=== PATIENT | female | born 1950 | race African-American/Black ===

== ENCOUNTER 2017-04-07 15:38 | Observation (INO) | payer OTHER ==
[~2017-04-07] VITALS: Ht 157.5 cm; Wt 67.3 kg
--- NOTE | ~2017-04-07 | EKG ---
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 : 1950 Requested By: Jan Mota Order Number: [id number] MD: Richard Andrews Measurements Intervals [place] Rate: 71 P: 71 AL: 172 QRS: -4 QRSD: 91 T: -13 QT: 429 QTc: 467 Interpretive Statements Sinus rhythm Probable left atrial enlargement LVH with secondary repolarization abnormality Compared to ECG 04/12/2016 18:05:28 Early repolarization now present ST (T wave) deviation no longer present Electronically Signed On 04-09-2017 22:11:10 CDT by Richard Andrews [email or web address] <ELECTRONICALLY SIGNED> By: Richard Andrews MD 04/09/17 2211 1607 1607 Richard Andrews MD /EPI
--- NOTE | ~2017-04-07 | EKG ---
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: pedro : 1950 Requested By: Jan Mota Order Number: [id number] MD: Richard Andrews Measurements Intervals [place] Rate: 64 P: 55 NC: 157 QRS: -8 QRSD: 98 T: -11 QT: 434 QTc: 448 Interpretive Statements Sinus rhythm Left atrial enlargement Left ventricular hypertrophy Nonspecific T abnormalities, inferior leads Compared to ECG 04/12/2016 18:05:28 Atrial abnormality now present T-wave abnormality now present ST (T wave) deviation no longer present Electronically Signed On 04-09-2017 22:10:01 CDT by Richard Andrews [email or web address] <ELECTRONICALLY SIGNED> By: Richard Andrews MD 04/09/17 2210 1542 1542 Richard Andrews MD /EPI
--- NOTE | ~2017-04-07 | EKG ---
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: AMY : 1950 Requested By: Varun Harkins Order Number: [id number] MD: Richard Andrews Measurements Intervals [place] Rate: 64 P: 64 AR: 173 QRS: -9 QRSD: 97 T: -34 QT: 417 QTc: 431 Interpretive Statements Sinus rhythm Probable left atrial enlargement Left ventricular hypertrophy Nonspecific T abnormalities, inferior leads Compared to ECG 04/12/2016 18:05:28 T-wave abnormality now present ST (T wave) deviation no longer present Electronically Signed On 04-09-2017 22:14:59 CDT by Richard Andrews [email or web address] <ELECTRONICALLY SIGNED> By: Richard Andrews MD 04/09/17 2214 0834 0834 Richard Andrews MD /EPI
[~2017-04-07 15:38] MED LIST: ACETAMINOPHEN325 M1 PO; ALBUTEROL2.5 MG/0.1 INH; ALDACTONE25 MG PO; ASPIR 8181 MG PO; ASPIR-TRIN325 MG PO; ATORVASTATIN CA40 MG PO; CARVEDILOL12.5 MG PO; CARVEDILOL25 MG PO; CLARITIN10 MG PO; COLACE100 MG PO; COUMADIN 3 MG TA3 M1 PO; COUMADIN 4 MG TA4 M1 PO; COUMADIN 5 MG TA5 M1 PO; FLAGYL500 MG PO; FLONASE 0.05%50 MCG NASAL; FOLIC ACID1 MG PO; HYDROCERIN CREA1 JAR TOP; HYDROCHLOROTHIA25 M2 PO; ISOSORBIDE MONO30 M1 PO; KEFLEX500 MG PO; LISINOPRIL10 MG PO; LISINOPRIL20 MG PO; LISINOPRIL40 MG PO; LORTAB 5-500 T1 EAC1 PO; MAG-AL PLUS SUS30 ML PO; MILK OF MA2400 MG/10 PO; MIRALAX17 GM PO; MUCINEX TA600 MG/TA2 PO; NEURONTIN 300300 M1 PO; NICOTINE TRANSD14 M1 TD; NITROGLYCERIN0.4 MG SUBLING; NOHOMEMEDICATIONS; NORCO 5-325 TA1 EACH PO; PROTONIX40 M1 PO; PYRIDIUM100 M1 PO; SENNA8.6 MG PO; TUMS PO; TYLENOL EXTRA500 MG PO; TYLENOL325 MG PO; VOLTAREN GEL 1100 G2 TOP
[2017-04-07 15:48] VITALS: BP 175/93
[2017-04-07 16:08] LABS: ABSOLUTE NEUTROPHILS 4.1 thou/uL (1.4-8.2); EOSINOPHILS 1.6 % (0.0-3.0); HEMATOCRIT 38.2 % (37.0-47.0); HEMOGLOBIN 11.9 gm/dL (12.0-15.0); LYMPHOCYTES 37.6 % (24.0-44.0); MCH 21.9 pg (26.0-34.0); MCHC 31.2 g/dL (28.0-37.0); MCV 70.3 fL (80.0-100.0); MONOCYTES 8.9 % (1.0-8.0); PLATELET COUNT 248 thou/uL (150-400); POLYS 50.9 % (36.0-66.0); RBC 5.44 mil/uL (4.20-5.00); RDW 16.5 % (10.5-14.5)
[2017-04-07 16:23] LABS: ANION GAP 9 mmol/L (7-16); BUN 24 mg/dL (7-18); CALCIUM 9.6 mg/dL (8.5-10.1); CHLORIDE 107 mmol/L (98-107); CO2 25 mmol/L (21-32); CREATININE 1.3 mg/dL (0.6-1.0); GLUCOSE 133 mg/dL (74-106); MANUAL DIFF NO; SODIUM 141 mmol/L (136-145)
[2017-04-07 16:25] LABS: APTT 35.2 Seconds (24.5-32.8); INR 2.5; PROTIME 26.1 Seconds (9.3-11.4)
[2017-04-07 16:30] LABS: ALBUMIN 3.8 g/dL (3.4-5.0); ALKALINE PHOSPHATASE 79 U/L (46-116); MAGNESIUM 1.8 mg/dL (1.8-2.4); SGOT 28 U/L (15-37); SGPT 22 U/L (30-65); TOTAL BILIRUBIN 0.4 mg/dL (<0.1-1.0); TOTAL PROTEIN 7.8 g/dL (6.4-8.2); TROPONIN-I < 0.04 ng/mL (<0.04-0.07)
[2017-04-07 18:22] VITALS: BP 179/78
[2017-04-07 19:30] VITALS: BP 185/82
[2017-04-07] MEDS ORDERED: COUMADIN 2.5MG2.5 M1 PO (22:39)
[2017-04-08] VITALS: BP 135/72
[2017-04-08 04:24] VITALS: BP 128/77
[2017-04-08 05:57] LABS: CHOLESTEROL 157 mg/dL (<200); HDL CHOLESTEROL 79 mg/dL (>40); LDL CHOLESTEROL 61 mg/dL (<100); SERUM ASSESSMENT Clear; TRIGLYCERIDE 88 mg/dL (<150); TROPONIN-I < 0.04 ng/mL (<0.04-0.07); VLDL 18 mg/dL (<40)
[2017-04-08 08:00] VITALS: BP 148/75
== END 2017-04-08 14:53 ==
LOC: ER 15:38 → EROBS 16:46 → 3N 18:24
PROVIDERS: Emergency Medicine; Internal Medicine Cardiovascular Disease
DX: R07.9 Chest pain, unspecified (principal); I63.9 Cerebral infarction, unspecified; I11.0 Hypertensive heart disease with heart failure; I50.9 Heart failure, unspecified; I48.91 Unspecified atrial fibrillation; D64.9 Anemia, unspecified; Z87.891 Personal history of nicotine dependence

== ENCOUNTER 2019-01-02 14:13 | Inpatient (IN) | payer OTHER ==
[~2019-01-02] VITALS: Ht 157.5 cm; Wt 76.9 kg
--- NOTE | ~2019-01-02 | HC ---
[facility] [place] [address] CONSULTATION Name: UNA RILEY Room #: 211-P ADM IN M.R.#: [id number] Admission: 01/02/19 ������������������ Attend Phys: Noel Atkinson MD Discharge: ������������������ Date of : 50 Report #: [id number] THIS REPORT FOR: //name// CC: Noel Motta DATE OF SERVICE: 01/03/2019 PRIMARY CARE PHYSICIAN: Dr. Tessa Carcamo. SENIOR PRODUCT CONSULTANT: Varun Harkins MD [facility]. CHIEF COMPLAINT: Chest pain. HISTORY OF PRESENT ILLNESS: The patient is a 68-year-old female with a history of ischemic cardiomyopathy. She lives in a longterm following a prior stroke. She had been having chest discomfort. She came to the Emergency Room via ambulance. Initial ECG demonstrated sinus rhythm with diffuse ST segment depression, but when compared to prior 2017 study this was noted to be chronic. She was admitted though because of her chest pain symptoms with a history of heart disease. Overnight, she has had negative troponins x 3 sets and this morning is asymptomatic. She is quite hypertensive when she presented, she did require some nitroglycerin. Apparently, she was in the hospital at [facility] with a potential infection and we have no records. PAST MEDICAL HISTORY: [place] in [place]. Apparently, she presented late, no revascularization was possible, she had a defibrillator placed, it is a [employer] device. She has a history of stroke, which occurred approximately one year later, she has high blood pressure. She is a tobacco user prior. She has an EF in the 30-35% range. FPC medications include Aldactone 25 mg daily, Coreg 25 mg p.o. b.i.d., Zestril 40 mg daily, warfarin 2.5 mg daily, atorvastatin 40 mg daily. ALLERGIES: She has no known drug allergies. SOCIAL HISTORY: She is still actively smoking. REVIEW OF SYSTEMS: GASTROINTESTINAL: No nausea, vomiting, hematemesis or melena. GENITOURINARY: No dysuria. NEUROLOGIC: Denies new symptoms of numbness, weakness or slurred speech. HEMATOLOGIC: No anemia or bleeding disorders. [facility] [address] [place] [address] CONSULTATION Name: UNA RILEY Room #: 211-P [facility] IN .R.#: [id number] Admission: 01/02/19 ������������������ Attend Phys: Noel Atkinson MD Discharge: ������������������ Date of : 50 Report #: [id number] RENAL: No history of kidney failure. ENDOCRINE: She is not known to be a diabetic. CARDIOVASCULAR: Positive chest pain, positive dyspnea on exertion. No orthopnea, no ICD shocks. PHYSICAL EXAMINATION: VITAL SIGNS: Blood pressure today is 110/49, pulse is 61, temperature 36.7, O2 sat 96%. GENERAL: This is a thin -German female. She is in no apparent distress. HEENT: Eyes are intact. No facial asymmetry. NECK: Supple. No jugular venous distention, upstrokes normal. CARDIOVASCULAR: Regular, faint murmur. LUNGS: Clear to auscultation. ABDOMEN: Soft, nontender. EXTREMITIES: No peripheral edema. Chest x-ray revealed improved aeration from prior study. LABORATORY DATA: Hemoglobin is 11.6, white blood count 7.4. Sodium is 141, potassium 3.9, chloride 107, BUN is 20, creatinine is 1.4. Troponin I is 0.06 x 3 sets. IMPRESSION: 1. Ischemic cardiomyopathy. 2. Angina. 3. Coronary artery disease. 4. Prior cerebrovascular accident. 5. Status post ICD. At this point in time, she is ruled out for an acute myocardial infarction. We will evaluate her with a pharmacologic stress test. Her blood pressure was elevated, but it seems better controlled currently. She is anticoagulated, so a further coronary intervention is being planned, this will need to be held. She did mention though that they attempted to perform a PCI at the time of her initial myocardial infarct, but no coronary stent was placed. We will obtain her outpatient records. ��������������������������������������������� ���������������������������������������� By: ��������������������������������������������� 0830 2339 Gerardo Evans MD, FACC /nt
[~2019-01-02 14:13] MED LIST changes: +COUMADIN 2.5MG2.5 M1 PO
[2019-01-02 14:14] VITALS: BP 154/74
[2019-01-02 15:12] LABS: ABSOLUTE NEUTROPHILS 3.9 thou/uL (1.4-8.2); BASOPHILS 0.9 % (0.0-2.0); EOSINOPHILS 1.1 % (0.0-3.0); HEMOGLOBIN 12.5 gm/dL (12.0-15.0); LYMPHOCYTES 36.6 % (24.0-44.0); MCH 22.3 pg (26.0-34.0); MCHC 31.2 g/dL (28.0-37.0); MCV 71.5 fL (80.0-100.0); MONOCYTES 7.3 % (1.0-8.0); PLATELET COUNT 164 thou/uL (150-400); POLYS 54.1 % (36.0-66.0); RDW 15.7 % (10.5-14.5); WBC 7.2 thou/uL (4.0-11.0)
[2019-01-02 15:16] LABS: INR 1.9; PROTIME 20.1 Seconds (9.3-11.4)
[2019-01-02 15:27] LABS: ANION GAP 8 mmol/L (7-16); BUN 17 mg/dL (7-18); CALCIUM 8.9 mg/dL (8.5-10.1); CHLORIDE 112 mmol/L (98-107); CO2 23 mmol/L (21-32); CREATININE 1.1 mg/dL (0.6-1.0); GLUCOSE 147 mg/dL (74-106); POTASSIUM 3.8 mmol/L (3.5-5.1); SODIUM 143 mmol/L (136-145)
[2019-01-02 15:37] LABS: TROPONIN-I <0.06 ng/mL (<0.06)
[2019-01-02 15:52] LABS: HYPOCHROMASIA 1+; MICROCYTES 1+
[2019-01-02 15:53] LABS: BURR CELLS 1+
[2019-01-02 17:28] VITALS: BP 145/59
[2019-01-02] MEDS ORDERED: SPIRONOLACTONE25 M1 PO (17:46)
[2019-01-02] MEDS ORDERED: OMEPRAZOLE20 M2 PO (17:48)
[2019-01-02] MEDS ORDERED: FLONASE 0.05%50 MCG NASAL (17:54)
[2019-01-02] MEDS ORDERED: UNICOMPLEX M TA1 TA1 PO (17:56)
[2019-01-02] MEDS ORDERED: KEPPRA 500 MG500 M1 PO (17:57)
[2019-01-02] MEDS ORDERED: ONDANSETRON HCL4 M2 PO (18:06)
[2019-01-02] MEDS ORDERED: BENADRYL25 MG PO (18:07)
[2019-01-02 18:09] VITALS: BP 151/58
--- NOTE | 2019-01-02 18:19 | NUR ---
PT ARRIVED TO ROOM 211. NO PAIN/CHEST PAIN. PT SITTING ON SIDE OF BED WITH CALL LIGHT IN REACH. VSS. WILL CONTINUE TO MONITOR.
[2019-01-02 18:30] VITALS: BP 146/76
[2019-01-03 04:15] VITALS: BP 105/42
[2019-01-03 04:37] LABS: ANION GAP 8 mmol/L (7-16); BUN 20 mg/dL (7-18); CALCIUM 9.4 mg/dL (8.5-10.1); CHLORIDE 107 mmol/L (98-107); CO2 26 mmol/L (21-32); CREATININE 1.4 mg/dL (0.6-1.0); GLUCOSE 129 mg/dL (74-106); POTASSIUM 3.9 mmol/L (3.5-5.1); SODIUM 141 mmol/L (136-145); TROPONIN-I <0.06 ng/mL (<0.06)
[2019-01-03 04:52] VITALS: BP 110/49
[2019-01-03 05:13] LABS: HEMATOCRIT 37.6 % (37.0-47.0); HEMOGLOBIN 11.6 gm/dL (12.0-15.0); MCH 22.1 pg (26.0-34.0); MCV 71.4 fL (80.0-100.0); RBC 5.26 mil/uL (4.20-5.00); RDW 15.8 % (10.5-14.5); WBC 7.4 thou/uL (4.0-11.0)
--- NOTE | 2019-01-03 05:14 | NUR ---
ASSUMED PT CARE AT 1900. PT WAS A NEW ADMIT TO THE UNIT AT THIS TIME. VSS. PT A0X4. ADMISSION ASSESSMENTS AND MEDS GIVEN ARE CHARTED. PT RESTED ALL NIGHT. NO COMPLAINTS OF CHEST PAIN FOR ME. SHE GOT UP TO USE THE RESTROM TWICE, SHE IS QUITE UNSTEADY BUT MAKES IT WELL IN SHORT STEPS TO THE BEDSIDE COMMODE WITH ONE ASSIST. PT HAD GOOD URINE OUTPUT. SHE HAS BEEN NPO SINCE MIDNIGHT IN PREP FOR STRESS TEST THIS AM. PT IS STABLE WILL CONTINUE TO MONITOR.
[2019-01-03 07:40] VITALS: BP 120/64
--- NOTE | 2019-01-03 09:20 | EKG ---
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 : 1950 Requested By: Cam Gray Order Number: [id number] MD: Octavio Pate Measurements Intervals [place] Rate: 58 P: 60 MS: 155 QRS: -20 QRSD: 98 T: -45 QT: 455 QTc: 447 Interpretive Statements Sinus rhythm Atrial premature complex Poor R wave progression ST segment abnormality, consider digoxin effect Compared to ECG 04/08/2017 08:34:24 No significant change was found Electronically Signed On 01-03-2019 9:19:55 CDT by Octavio Pate [email or web address] ��������������������������������������������� <ELECTRONICALLY SIGNED> ���������������������������������������� By: Octavio Pate MD, [facility] ��������������������������������������������� 01/03/19 0919 1417 141 Octavio Pate MD, [facility] /EPI
[2019-01-03 11:45] VITALS: BP 174/55
--- NOTE | 2019-01-03 13:03 | NUR ---
patient admits with chest pain. She is ltc at [facility]. She has prev IA and CVA. She is A/Ox4. Plan return once stable. Casemgt following. Left son message.
--- NOTE | 2019-01-03 14:39 | NUR ---
PT. RESIDES AT [facility] FAXED CLINICAL UPDATE TO FACILITY SPOKE WITH HO IN ADM. SHE RECEIVED UPDATE. DCP TO FOLLOW.
[2019-01-03 16:00] VITALS: BP 146/60
[2019-01-03 19:51] VITALS: BP 137/70
--- NOTE | 2019-01-03 20:30 | NUR ---
SHIFT SUMMARY: NPO FOR PROCEDURE. ASSESSMENT COMPLETED AT SHIFT CHANGE. TO STRESS TEST AT 0850 PER WHEELCHAIR WITH TRANSPORT, RETURNED AT 1030. REPORT RECEIVED POST PROCEDURE. PLEASANT, COOPERATIVE, CHRONIC DISCOMFORT IN L SHOULDER/ARM, SR WITH INTERMITTENT BIGEMINAL PVC'S, ROOM AIR, RESP EVEN AND UNLABORED, VOIDS ADEQUATE AMOUNT. STRESS TEST REPORT READ BY DR. WATSON- BASED ON STRESS TEST RESULTS- PT JANUARY DISCHARGE. REPORT TO ONCOMING RN.
[2019-01-04 00:01] VITALS: BP 132/51
--- NOTE | 2019-01-04 04:09 | NUR ---
ASSUMED PT CARE AT 1900. VSS. PT A&0X4. PT RESTED WELL ALL NIGHT AROUND 0230 SHE COMPLAINED THAT HER IV SITE WAS BEGINING TO HURT, SO IV WAS TAKEN OUT, RIGHT ARM ELEVATED AND ICE WAS PLACED ON IT. PT IS STABLE, SR ON THE MONITOR, POSSIBLE D/C SOON.
[2019-01-04 04:46] VITALS: BP 116/60
[2019-01-04 08:14] VITALS: BP 135/63
[2019-01-04 12:27] VITALS: BP 156/81
--- NOTE | 2019-01-04 13:27 | NUR ---
PT. DISCHARGING TODAY BACK TO [facility] FAXED DC ORDERS/SUMMARY TO FACILITY AND SPOKE WITH HO IN ADM. SHE RECEIVED DC ORDERS AND ARRANGED WC VAN TRANSPORT FOR 1500 TODAY. LEFT [facility] [place] BOTH SONS LINETTE AND CARSON THAT PT. DISCHARGING TODAY AND TIME OF TRANSPORT. UNIT NOTIFIED AND CHART COPY PER US. RN TO CALL REPORT TO [phone].
--- NOTE | 2019-01-04 14:56 | NUR ---
PT DISCHARGING AT THIS TIME BACK TO SENDING FACILTIY. REPORT CALLED TO NURSE GALEANO. NO CHANGES REPORTED REGARDING PREVIOUS POC. PT ALERT AND ORIENTED X4. DENIES PAIN AND SOA. VSS. NO PIV PRESENT TO REMOVE. TELE BOX OFF. CHART COPY IN MEDICAL TRANSPORTATION PERSONNEL POSSESSION.
== END 2019-01-04 16:22 | DRG 206 ==
LOC: ER 14:13 → 2N 17:25 → EROBS 17:25 → 2N 18:09
PROVIDERS: Emergency Medicine; ADMIT Hospitalist
DX: M94.0 Chondrocostal junction syndrome [Tietze] (principal); I69.354 Hemiplegia and hemiparesis following cerebral infarction affecting left non-dominant side; E78.5 Hyperlipidemia, unspecified; I50.9 Heart failure, unspecified; I11.0 Hypertensive heart disease with heart failure; I25.5 Ischemic cardiomyopathy; I25.119 Atherosclerotic heart disease of native coronary artery with unspecified angina pectoris; Z79.899 Other long term (current) drug therapy; I25.2 Old myocardial infarction; Z95.0 Presence of cardiac pacemaker; Z87.891 Personal history of nicotine dependence; Z79.01 Long term (current) use of anticoagulants
CPT/HCPCS: 10081

== ENCOUNTER 2020-08-14 16:41 | Inpatient (IN) | payer OTHER ==
[~2020-08-14] VITALS: Ht 157.5 cm; Wt 74.4 kg
[~2020-08-14 16:41] MED LIST changes: +BENADRYL25 MG PO; +KEPPRA 500 MG500 M1 PO; +OMEPRAZOLE20 M2 PO; +ONDANSETRON HCL4 M2 PO; +SPIRONOLACTONE25 M1 PO; +UNICOMPLEX M TA1 TA1 PO
[2020-08-14 16:42] VITALS: BP 149/70
[2020-08-14 17:07] LABS: ABSOLUTE NEUTROPHILS 4.3 thou/uL (1.4-8.2); BASOPHILS 0.7 % (0.0-2.0); EOSINOPHILS 1.5 % (0.0-3.0); HEMATOCRIT 33.5 % (37.0-47.0); HEMOGLOBIN 10.5 gm/dL (12.0-15.0); LYMPHOCYTES 36.7 % (24.0-44.0); MCH 22.9 pg (26.0-34.0); MCHC 31.3 g/dL (28.0-37.0); MCV 73.1 fL (80.0-100.0); MONOCYTES 9.4 % (1.0-8.0); PLATELET COUNT 203 thou/uL (150-400); POLYS 51.7 % (36.0-66.0); RBC 4.59 mil/uL (4.20-5.00); RDW 15.8 % (10.5-14.5); WBC 8.3 thou/uL (4.0-11.0)
[2020-08-14 17:12] LABS: ANION GAP 10 mmol/L (7-16); BUN 20 mg/dL (7-18); CALCIUM 9.8 mg/dL (8.5-10.1); CHLORIDE 106 mmol/L (98-107); CO2 26 mmol/L (21-32); CREATININE 1.4 mg/dL (0.6-1.0); GLUCOSE 178 mg/dL (74-106); POTASSIUM 3.5 mmol/L (3.5-5.1); SODIUM 142 mmol/L (136-145)
[2020-08-14 17:19] LABS: ALBUMIN 3.7 g/dL (3.4-5.0); SGOT 15 U/L (15-37); SGPT 14 U/L (30-65); TOTAL BILIRUBIN 0.2 mg/dL (0.2-1.0); TOTAL PROTEIN 7.3 g/dL (6.4-8.2)
[2020-08-14 17:57] LABS: TROPONIN-I <0.06 ng/mL (<0.06)
[2020-08-14 18:06] LABS: HYPOCHROMASIA 1+; MICROCYTES 1+
[2020-08-14 18:25] VITALS: BP 149/70
[2020-08-14] MEDS ORDERED: BIOFREEZE118 ML TOP (19:10)
[2020-08-14] MEDS ORDERED: NEURONTIN 300M300 M2 PO (19:12)
[2020-08-14] MEDS ORDERED: ISOSORBIDE MONO30 M1 PO (19:14)
[2020-08-14] MEDS ORDERED: KEPPRA XR500 MG PO (19:15)
[2020-08-14] MEDS ORDERED: METFORMIN HCL500 MG PO (19:16)
[2020-08-14] MEDS ORDERED: MYLANTA GAS MIN42 MG PO (19:18)
[2020-08-14] MEDS ORDERED: PROTONIX40 M2 PO (19:19)
[2020-08-14] MEDS ORDERED: TRAMADOL 50 MG50 MG PO (19:23)
[2020-08-14] MEDS ORDERED: VITAMIN C500 M2 PO (19:24)
[2020-08-14] MEDS ORDERED: ZINC SULFATE220 MG PO (19:25)
[2020-08-14] MEDS ORDERED: XARELTO20 MG PO (19:25)
[2020-08-14] MEDS ORDERED: ZOFRAN ODT4 MG PO (19:26)
--- NOTE | 2020-08-14 19:27 | NUR ---
[employer] STATES PT HAS A SINGLE LEAD ICD AND THATS IT IS SET UP FOR SHOCK FOR SHOCK BOX. HE STATES INTERPRETATION OF PACEMAKER WILL REVEAL NOTHING.
[2020-08-14 19:37] VITALS: BP 163/74
[2020-08-14 19:58] VITALS: BP 122/60
[2020-08-14 20:14] VITALS: BP 139/70
--- NOTE | 2020-08-15 06:16 | NUR ---
VSS-AFEBRILE. NO C/O CHEST PAIN OVERNIGHT. C/O CHRONIC BACK PAIN THAT IS PARTIALLY RELIEVED WITH PO PAIN MEDICATION. NO DIFFICULTY VOIDING, CLEAR, YELLOW URINE. SR-HAS INDWELLING AICD. REMAINS ON ROOM AIR. FALL PRECAUTIONS IN PLACE.
[2020-08-15 06:24] LABS: ALBUMIN 3.7 g/dL (3.4-5.0); ANION GAP 10 mmol/L (7-16); BUN 21 mg/dL (7-18); CALCIUM 9.7 mg/dL (8.5-10.1); CHLORIDE 105 mmol/L (98-107); CO2 28 mmol/L (21-32); CREATININE 1.7 mg/dL (0.6-1.0); GLUCOSE 104 mg/dL (74-106); POTASSIUM 3.6 mmol/L (3.5-5.1); SODIUM 143 mmol/L (136-145); TROPONIN-I <0.06 ng/mL (<0.06)
[2020-08-15 07:20] VITALS: BP 114/62
[2020-08-15] MEDS ORDERED: LIDODERM1 EACH TRANSDERM (10:03)
--- NOTE | 2020-08-15 10:29 | NUR ---
Received awake on bed. Due medications given as prescribed, able to swallow meds w/o difficulty. On room air. Vital signs stable. A+Ox4. with left sided weakness; assisted in ADLs. On telemetry; no complains and signs of chest pain, crushing sensation and heaviness. On heart healthy diet- tolerating well; no nausea, no vomiting and no abdominal pain noted. Continent of bowel and bladder, able to use bedpan. With SL at R hand- intact and flushing well; dressing C/D/I. Falls bundle in place. Possible discharge today. No complains of pain made during assessment. To continue monitoring patient. Pt seen and examined by Dr Smith this AM, discharge orders made- CM to be informed.
[2020-08-15 15:30] VITALS: BP 125/52
[2020-08-15 16:26] VITALS: BP 114/62
--- NOTE | 2020-08-17 07:06 | EKG ---
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 : 1950 Requested By: Kingsley Diggs Order Number: [id number] MD: Sp Quikc Measurements Intervals [place] Rate: 68 P: 52 FL: 170 QRS: -16 QRSD: 104 T: -27 QT: 386 QTc: 411 Interpretive Statements Sinus rhythm Ventricular premature complex Abnormal R-wave progression, late transition LVH with secondary repolarization abnormality Compared to ECG 01/02/2019 14:17:47 Ventricular premature complex(es) now present Left ventricular hypertrophy now present Early repolarization now present Atrial premature complex(es) no longer present Poor R-wave progression no longer present Electronically Signed On 08-17-2020 7:05:59 FELT CEMENTER by Sp Quick [email or web address] <ELECTRONICALLY SIGNED> By: Sp Quick MD, [facility] 08/17/20 0705 44 44 Sp Quick MD, [facility] /EPI
== END 2020-08-15 17:55 | DRG 205 ==
LOC: ER 16:41 → EROBS 19:36 → 4W 19:42
PROVIDERS: Emergency Medicine; ADMIT Hospitalist; ATTEND Hospitalist
DX: M94.0 Chondrocostal junction syndrome [Tietze] (principal); N17.0 Acute kidney failure with tubular necrosis; I42.9 Cardiomyopathy, unspecified; I69.354 Hemiplegia and hemiparesis following cerebral infarction affecting left non-dominant side; I25.10 Atherosclerotic heart disease of native coronary artery without angina pectoris; E78.5 Hyperlipidemia, unspecified; I50.9 Heart failure, unspecified; I11.0 Hypertensive heart disease with heart failure; Z79.899 Other long term (current) drug therapy; I25.2 Old myocardial infarction; Z95.810 Presence of automatic (implantable) cardiac defibrillator; Z87.891 Personal history of nicotine dependence
CPT/HCPCS: 10045

== ENCOUNTER 2021-04-19 12:28 | Emergency (ER) | payer OTHER ==
[~2021-04-19] VITALS: Ht 157.5 cm; Wt 74.6 kg
[~2021-04-19 12:28] MED LIST changes: +BIOFREEZE118 ML TOP; +KEPPRA XR500 MG PO; +LIDODERM1 EACH TRANSDERM; +METFORMIN HCL500 MG PO; +MYLANTA GAS MIN42 MG PO; +NEURONTIN 300M300 M2 PO; +PROTONIX40 M2 PO; +TRAMADOL 50 MG50 MG PO; +VITAMIN C500 M2 PO; +XARELTO20 MG PO; +ZINC SULFATE220 MG PO; +ZOFRAN ODT4 MG PO
[2021-04-19 12:29] VITALS: BP 198/92
[2021-04-19 13:07] LABS: ABSOLUTE NEUTROPHILS 3.4 thou/uL (1.4-8.2); BASOPHILS 0.7 % (0.0-2.0); EOSINOPHILS 1.3 % (0.0-3.0); HEMATOCRIT 30.1 % (37.0-47.0); HEMOGLOBIN 9.2 gm/dL (12.0-15.0); LYMPHOCYTES 35.6 % (24.0-44.0); MCH 21.5 pg (26.0-34.0); MCHC 30.5 g/dL (28.0-37.0); MCV 70.3 fL (80.0-100.0); PLATELET COUNT 210 thou/uL (150-400); POLYS 53.4 % (36.0-66.0); RBC 4.29 mil/uL (4.20-5.00); WBC 6.4 thou/uL (4.0-11.0)
[2021-04-19 13:12] LABS: POTASSIUM 3.9 mmol/L (3.5-5.1)
[2021-04-19 13:18] LABS: TOTAL BILIRUBIN 0.2 mg/dL (0.2-1.0); TOTAL PROTEIN 6.2 g/dL (6.4-8.2)
[2021-04-19 13:53] LABS: ANISOCYTOSIS 1+; HYPOCHROMASIA 1+; MICROCYTES 1+
== END 2021-04-19 18:38 ==
LOC: ER 12:28
PROVIDERS: Emergency Medicine
DX: M25.552 Pain in left hip (principal); E78.5 Hyperlipidemia, unspecified; I50.9 Heart failure, unspecified; I11.0 Hypertensive heart disease with heart failure; F17.210 Nicotine dependence, cigarettes, uncomplicated; Z86.73 Personal history of transient ischemic attack (TIA), and cerebral infarction without residual deficits; V00.811A Fall from moving wheelchair (powered), initial encounter; Y93.89 Activity, other specified; Y92.89 Other specified places as the place of occurrence of the external cause; Y99.8 Other external cause status

== ENCOUNTER 2021-04-30 12:59 | Emergency (ER) | payer OTHER ==
[~2021-04-30] VITALS: Ht 157.5 cm; Wt 79.4 kg
[2021-04-30 14:00] VITALS: BP 170/85
== END 2021-04-30 18:00 | disposition home or self-care (01) ==
LOC: ER 12:59
DX: S80.02XA Contusion of left knee, initial encounter (principal); F17.210 Nicotine dependence, cigarettes, uncomplicated; I11.0 Hypertensive heart disease with heart failure; I25.2 Old myocardial infarction; E78.5 Hyperlipidemia, unspecified; I25.10 Atherosclerotic heart disease of native coronary artery without angina pectoris; I50.9 Heart failure, unspecified; Z79.84 Long term (current) use of oral hypoglycemic drugs; Z79.891 Long term (current) use of opiate analgesic; Z79.899 Other long term (current) drug therapy; W05.0XXA Fall from non-moving wheelchair, initial encounter; Y93.89 Activity, other specified; Y92.89 Other specified places as the place of occurrence of the external cause; Y99.8 Other external cause status